=== PATIENT | male | born 1945 ===

== ENCOUNTER 2021-12-26 06:20 | Day surgery (SDC) | payer OTHER ==
[~2021-12-26] VITALS: Ht 177.8 cm; Wt 83.9 kg
[~2021-12-26 06:20] MED LIST: LIPOFEN50 MG PO; TAMS0.4C PO; ZOCOR40 MG PO
[2021-12-26] MEDS ORDERED: PERCOCET 5-3251 EACH PO (13:04)
== END 2021-12-26 16:20 | disposition home or self-care (01) ==
LOC: CIR.AMB 06:20
PROVIDERS: ATTEND Surgery
DX: N52.9 Male erectile dysfunction, unspecified (principal); N48.6 Induration penis plastica; Z20.822 Contact with and (suspected) exposure to COVID-19
CPT/HCPCS: 54360; 54405; C1813